=== PATIENT | female | born 1970 | race Caucasian/White ===

== ENCOUNTER 2017-03-17 18:20 | Emergency (ER) | payer OTHER | END 2017-03-17 21:43 | disposition home or self-care (01) | LOC: D.ER 18:20 | DX: S60.221A Contusion of right hand, initial encounter (principal); X58.XXXA Exposure to other specified factors, initial encounter; Y93.89 Activity, other specified; Y92.029 Unspecified place in mobile home as the place of occurrence of the external cause; F17.200 Nicotine dependence, unspecified, uncomplicated ==

== ENCOUNTER 2017-10-14 20:33 | Emergency (ER) | payer OTHER | END 2017-10-14 22:53 | disposition home or self-care (01) | LOC: D.ER 20:33 | DX: S86.812A Strain of other muscle(s) and tendon(s) at lower leg level, left leg, initial encounter (principal); X50.1XXA Overexertion from prolonged static or awkward postures, initial encounter; Y93.89 Activity, other specified; Y92.019 Unspecified place in single-family (private) house as the place of occurrence of the external cause; F17.200 Nicotine dependence, unspecified, uncomplicated ==

== ENCOUNTER → 2018-10-28 16:29 | Outpatient (CLI) | payer OTHER | END | disposition home or self-care (01) | LOC: D.RAD 16:29 | PROVIDERS: ATTEND Nurse Practitioner Family | DX: R05 Cough (principal) ==

== ENCOUNTER → 2019-11-25 13:08 | Outpatient (CLI) | payer OTHER ==
--- NOTE | 2019-11-26 08:26 | EC ---
PATIENT:MARLO YOON DATE OF SERVICE: 11/25/19 SEX: F MEDICAL RECORD: [id number] DATE OF : 72 LOCATION:[facility] AGE OF PATIENT: 49 ADMISSION DATE: 11/25/19 REFERRING PHYSICIAN: INTERPRETING PHYSICIAN: GABY CIFUENTES MD ECHOCARDIOGRAM REPORT ECHO CHARGES 4 ECHO COMPLETE Date: 11/25/19 CLINICAL DIAGNOSIS: MITRAL AND AORTIC REGURG/PVC'S ECHOCARDIOGRAPHIC MEASUREMENTS (adult normal given) AC root (d.<3.7cm) 3.0 cm LV Septum d (<1.2 cm> 1.3 cm Valve Excursion 1.6 cm LV Septum (systole) 1.5 cm Left Atria (s.<4.0cm> 4.1 cm LVPW d(<1.2cm) 1.5 cm RV (d.<2.3cm) 3.4 cm LVPW (sytole) 1.7 cm LV diastole(<5.6CM) 4.2 cm MV E-F(>70mm/sec) cm LV systole 2.9 cm LVOT Diameter 2.0 cm MV exc.(>10mm) 1.0 cm Est.ejection fraction (50-75%) % DOPPLER: LVIT cm/sec A 66.0 cm/sec E 86.0 cm/sec LA cm/sec RVSP 27 mmHg LVOT 122 cm/sec AOP1/2T 583 m/s Asc. Ao 188 cm/sec RVOT 108 cm/sec RA cm/sec PA 121 cm/sec AV Gradient Peak 14.09mmHg AV Mean 7.41 mmHg AV Area 1.9 cm MV Gradient Peak 5.51 mmHg MV Mean 3.76 mmHg MV Area cm COMMENTS: Field Appraiser: 2 ORLANDO STANLEY Milking Machine Operator: 3 Dr. Duarte TAPE# PACS Pericardial Effusion N DATE OF SERVICE: Adequate 2D, color flow imaging, spectral Doppler, and M-Mode. Mild LVH. LV internal dimensions are normal. Wall motion is normal. EF is greater than or equal to 55%. Aortic valve is sclerotic. No evidence of stenosis by Doppler interrogation. Mild AI by color flow imaging. Left atrium was normal at 4.1 cm. Mitral valve shows no prolapse. Trace MR. Right-sided chambers are grossly normal. Mild TR. ECHOCARDIOGRAM REPORT [id number] MARLO YOON TRANSINT:[id number] Voice Confirmation ID: [id number] DOCUMENT ID: [id number] GABY CIFUENTES MD at 0826 CC: [id number] DICTATION DATE: 11/25/19 1505 TELECOMMUNICATIONS ANALYST: 11/25/19 2100 DEP CLI 11/25/19 [place] [id number]
== END | disposition home or self-care (01) ==
LOC: D.HCCECHO 13:08
PROVIDERS: ATTEND Internal Medicine Interventional Cardiology
DX: I34.0 Nonrheumatic mitral (valve) insufficiency (principal)

== ENCOUNTER 2020-10-26 11:30 | Emergency (ER) | payer BC ==
[~2020-10-26] VITALS: Ht 172.7 cm; Wt 94.1 kg
[2020-10-26 11:48] VITALS: BP 123/77; Ht 172.7 cm; Wt 94.1 kg
[2020-10-26] MEDS ORDERED: TENORMIN100 MG PO (11:52)
[2020-10-26] MEDS ORDERED: ARTHROTEC 501 TAB.EC PO (14:12)
== END 2020-10-26 14:38 | disposition home or self-care (01) ==
LOC: D.ER 11:30
DX: S56.812A Strain of other muscles, fascia and tendons at forearm level, left arm, initial encounter (principal); K21.9 Gastro-esophageal reflux disease without esophagitis; W01.10XA Fall on same level from slipping, tripping and stumbling with subsequent striking against unspecified object, initial encounter; Y93.9 Activity, unspecified; Y92.9 Unspecified place or not applicable